=== PATIENT | male | born 1955 | race African-American/Black ===

== ENCOUNTER 2020-01-08 02:47 | Inpatient (IN) | payer MEDICAID, OTHER ==
[~2020-01-08] VITALS: Ht 167.6 cm; Wt 83.0 kg
[2020-01-08] VITALS (7 sets, daily range): BP systolic 114–132; BP diastolic 74–87
[2020-01-08 03:35] LABS: CHLORIDE 107 mEq/L (98-107)
[2020-01-08 03:37] LABS: PROTHROMBIN TIME 10.7 sec (9.6-11.0)
[2020-01-08 03:39] LABS: BASOPHILS % 0.4 % (0.0-2.0); EOSINOPHILS % 1.7 % (0.0-5.0); ETHANOL BLOOD < 10 mg/dL; HEMATOCRIT. 41.1 % (42.0-52.0); HEMOGLOBIN. 13.5 g/dL (14.0-18.0); LYMPHOCYTES % 26.8 % (20.0-50.0); MEAN CORPUSCULAR HEMOGLOBIN 29.7 pg (28.0-32.0); MEAN CORPUSCULAR VOLUME 90.4 fL (80.0-94.0); MEAN PLATELET VOLUME 9.1 fl (7.4-10.4); MONOCYTES % 12.6 % (2.0-8.0); NEUTROPHILS % 58.5 % (40.0-76.0); PLATELET 260 x1000/uL (130-400); RED BLOOD CELL COUNT 4.54 mill/uL (4.7-6.1); RED CELL DISTRIBUTION WIDTH 12.6 % (11.6-14.6)
[2020-01-08 03:42] LABS: LDL CHOLESTEROL 151 mg/dL (5-100)
[2020-01-08 04:00] LABS: CLARITY URINE CLEAR (CLEAR); COLOR URINE YELLOW (YELLOW); KETONES URINE NEGATIVE (NEGATIVE); LEUKOCYTE ESTERASE URINE NEGATIVE (NEGATIVE); NITRITE URINE NEGATIVE (NEGATIVE); OCCULT BLOOD URINE NEGATIVE (NEGATIVE); PH URINE 5.5 (4.5-8.0); PROTEIN URINE NEGATIVE (NEGATIVE); SPECIFIC GRAVITY URINE 1.021 (1.005-1.030); UROBILINOGEN URINE 0.2 E.U./dL (0.2-1.0)
[2020-01-08 04:10] LABS: *BARBITURATES SCREEN URINE NEGATIVE (NEGATIVE); *BENZODIAZEPINES SCREEN URINE NEGATIVE (NEGATIVE); *COCAINE SCREEN URINE NEGATIVE (NEGATIVE); CANNABINOID URINE SCREEN NEGATIVE (NEGATIVE)
[2020-01-08 04:11] LABS: *AMPHETAMINES SCREEN URINE NEGATIVE (NEGATIVE); METHADONE URINE SCREEN NEGATIVE (NEGATIVE); OPIATES URINE SCREEN NEGATIVE (NEGATIVE); PHENCYCLIDINE URINE SCREEN NEGATIVE (NEGATIVE)
[2020-01-08] MEDS ORDERED: ASPIRIN 325MG TABLET PO ONE (05:30)
[2020-01-08] MEDS ORDERED: ACETAMINOPHEN 325MG TABLET PO PRN (08:45)
[2020-01-08] MEDS ORDERED: ONDANSETRON HCL 4MG/2ML INJ IV PRN (08:45)
[2020-01-08] MEDS ORDERED: MAGNESIUM/ALUMINUM HYDROXIDE/SIMETHICONE 30ML UDC PO PRN (08:45)
[2020-01-08] MEDS ORDERED: DIPHENHYDRAMINE 50MG/ML VIAL IV PRN (08:45)
[2020-01-08] MEDS ORDERED: CLONIDINE 0.1MG TABLET PO PRN (08:45)
[2020-01-08] MEDS ORDERED: GUAIFENESIN 200MG/10ML SUGAR FREE UDC PO PRN (08:45)
[2020-01-08] MEDS: ENOXAPARIN 40MG/0.4ML SYR SUBCUT SCH (09:00)
[2020-01-08] MEDS ORDERED: ASPIRIN 81MG EC TABLET PO SCH (09:00)
[2020-01-08 11:05] LABS: FOLIC ACID (FOLATE) SERUM 15.2 ng/mL (>5.38)
[2020-01-08] MEDS: SODIUM CHLORIDE 0.9% INJ 3ML FLUSH IVF SCH ×2 (13:42→20:37)
[2020-01-08] MEDS ORDERED: ATORVASTATIN CALCIUM 40MG TABLET PO SCH (21:00)
[2020-01-09] VITALS (10 sets, daily range): BP systolic 104–146; BP diastolic 54–94
[2020-01-09] MEDS: SODIUM CHLORIDE 0.9% INJ 3ML FLUSH IVF SCH ×2 (06:31→14:08)
[2020-01-09] MEDS ORDERED: CLOPIDOGREL 75MG TABLET PO SCH (09:00)
[2020-01-09] MEDS: ENOXAPARIN 40MG/0.4ML SYR SUBCUT SCH (09:04)
[2020-01-09] MEDS ORDERED: CYANOCOBALAMIN 1000MCG TABLET PO SCH (10:00)
== END 2020-01-09 17:50 | disposition home or self-care (01) | DRG 66 ==
LOC: ER 03:01 → 5EST 04:47 → ENRESERV 07:24
PROVIDERS: ADMIT Internal Medicine; ATTEND Internal Medicine
PROC: 4A10X4Z Monitoring of Central Nervous Electrical Activity, External Approach (ICD-10-PCS; principal; 2020-01-09)
DX: I63.9 Cerebral infarction, unspecified (principal); I10 Essential (primary) hypertension; E78.00 Pure hypercholesterolemia, unspecified; R29.810 Facial weakness; R47.81 Slurred speech; R47.01 Aphasia; Z86.73 Personal history of transient ischemic attack (TIA), and cerebral infarction without residual deficits; Z80.9 Family history of malignant neoplasm, unspecified
CPT/HCPCS: 36415; 70544; 70551; 71045; 80053; 80061; 80305; 80320; 81003; 82607; 82746; 82962; 83036; 83721; 84439; 84443; 84481; 84484; 85025; 92610; 93005; 93306; 93880; 93970; 97162; 97165; 99291; J1650; G0480